=== PATIENT | female | born 1980 | race American Indian/Alaskan Native ===

== ENCOUNTER 2017-03-08 23:15 | Emergency (ER) | payer SELFPAY ==
--- NOTE | 2017-03-09 05:12 | XRay Report ---
FINAL REPORT EXAM: XR FOOT 3+V LT HISTORY: foot pain COMPARISONS: None. FINDINGS: Three nonweightbearing views left foot Mild forefoot soft tissue swelling. No bone lesion, periosteal reaction, or fracture. No deformity or gross malalignment. Small Achilles insertional enthesophyte is noted. IMPRESSION: Mild nonspecific forefoot soft tissue swelling without acute osseous finding.
[2017-03-09] MEDS ORDERED: MOTRIN PO ONE (05:21)
--- NOTE | 2017-03-09 05:26 | Emergency Department Report ---
ED Lower Extremity HPI - General Chief Complaint: Extremity Injury, Lower Stated Complaint: FOOT PAIN Time Seen by Provider: 03/09/17 04:17 Source: patient Mode of arrival: Ambulatory Limitations: No Limitations - History of Present Illness Initial Comments: This is a 36-year-old female nontoxic, well nourished in appearance, no acute signs of distress presents to the ED with c/o of left foot pain 1 week. Patient denies any trauma to the region. 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 She denies any numbness, tingling, joint swelling, joint redness, fever, chills, chest pain or shortness of breath. Patient allergies to latex and IV amaro. Past medical history includes diabetes. MD Complaint: foot injury -: week(s) (1) Injury: Foot: Left Place: work Severity: mild Severity scale (0 -10): 8 Improves With: nothing Worsens With: nothing Associated Symptoms: ambulatory. denies: snap/pop sensation, swelling, numbness , tingling, unable to bear weight, able to partially bear weight - Related Data Previous Rx's Medication Instructions Recorded Last Taken Type HYDROcodone/APAP 5-325 [Hulen 1 each PO Q6HR PRN #20 tablet 12/31/13 Unknown Rx 5/325] Ibuprofen [Motrin] 600 mg PO Q8H PRN #40 tablet 12/31/13 Unknown Rx Naproxen [Naprosyn TAB] 500 mg PO BID PRN #30 tablet 03/09/17 Unknown Rx Allergies Allergy/AdvReac Type Severity Reaction Status Date / Time latex Allergy Rash Verified 12/31/13 00:54 pramoxine HCl [From Janae Wash] Allergy Swelling Verified 12/31/13 00:54 ED Review of Systems ROS: Stated complaint: FOOT PAIN Other details as noted in HPI Constitutional: denies: chills, fever Eyes: denies: eye pain, eye discharge, vision change ENT: denies: ear pain, throat pain Respiratory: denies: cough, shortness of breath, wheezing Cardiovascular: denies: chest pain, palpitations Endocrine: no symptoms reported Gastrointestinal: denies: abdominal pain, nausea, diarrhea Genitourinary: denies: urgency, dysuria, discharge Musculoskeletal: denies: back pain, joint swelling, arthralgia Skin: denies: rash, lesions Neurological: denies: headache, weakness, paresthesias Psychiatric: denies: anxiety, depression Hematological/Lymphatic: denies: easy bleeding, easy bruising ED Past Medical Hx - Past Medical History Previous Medical History?: Yes Hx Diabetes: Yes (no meds) Additional medical history: sleep apnea - Surgical History Past Surgical History?: Yes Hx Cholecystectomy: Yes Additional Surgical History: 3 c section - Social History Smoking Status: Former Smoker Substance Use Type: None - Medications Home Medications: Home Medications Medication Instructions Recorded Confirmed Last Taken Type HYDROcodone/APAP 5-325 [Hulen 1 each PO Q6HR PRN #20 tablet 12/31/13 Unknown Rx 5/325] Ibuprofen [Motrin] 600 mg PO Q8H PRN #40 tablet 12/31/13 Unknown Rx Naproxen [Naprosyn TAB] 500 mg PO BID PRN #30 tablet 03/09/17 Unknown Rx ED Physical Exam - General Limitations: No Limitations General appearance: alert, in no apparent distress - Head Head exam: Present: atraumatic, normocephalic - Eye Eye exam: Present: normal appearance - ENT ENT exam: Present: mucous membranes moist - Neck Neck exam: Present: normal inspection - Respiratory Respiratory exam: Present: normal lung sounds bilaterally. Absent: respiratory distress - Cardiovascular Cardiovascular Exam: Present: regular rate, normal rhythm. Absent: systolic murmur, diastolic murmur, rubs, gallop - GI/Abdominal GI/Abdominal exam: Present: soft, normal bowel sounds - Extremities Exam Extremities exam: Present: normal inspection - Expanded Lower Extremity Exam Left Hip exam: Present: normal inspection, full ROM Upper Leg exam: Present: normal inspection, full ROM Knee exam: Present: normal inspection, full ROM Lower Leg exam: Present: normal inspection, full ROM Ankle exam: Present: normal inspection, full ROM. Absent: tenderness, swelling , abrasion, laceration, ecchymosis, deformity, crepidus, dislocation, erythema, anterior draw sign Foot/Toe exam: Present: normal inspection, full ROM, tenderness (plantar surface region). Absent: swelling, abrasion, laceration, ecchymosis, deformity , crepidus, dislocation, erythema, amputation, puncture wound, foreign body, calcaneal tenderness, tenderness at base of 5th metatarsal, nail avulsion, subungual hematoma Neuro vascular tendon exam: Present: no vascular compromise. Absent: abnormal cap refill, motor deficit, sensory deficit, tendon deficit, extremity cold to touch, pallor, abnormal 2-point discrimination, decreased fine/light touch, foot drop, peroneal nerve deficit, significant pain with passive ROM of distal joint Gait: Positive: observed and normal 1 - Pain - Back Exam Back exam: Present: normal inspection - Neurological Exam Neurological exam: Present: alert, oriented X3 - Psychiatric Psychiatric exam: Present: normal affect, normal mood - Skin Skin exam: Present: warm, dry, intact, normal color. Absent: rash ED Course Vital Signs 03/09/17 00:30 Temperature 98.5 F Pulse Rate 87 Respiratory 18 Rate Blood Pressure 146/84 O2 Sat by Pulse 99 Oximetry - Reevaluation(s) Reevaluation #1: 03/09/17 05:24 Patient is speaking in full sentences with no signs of distress noted. ED Lower Extremity MDM - Medical Decision Making this is a 36-year-old female that presents with plantar fasciitis of the left foot. Patient is stable and was examined by me. She received Motrin 800 mg by mouth in the ED. X-ray has been obtained and reviewed by radiologist normal examination. Patient notified of x-ray results. No further questions nor by the patient. Patient was instructed to rest and ice extremity. Patient is also instructed to exercising the extremity and buying [id number] plantar fasciitis exercise ball. Patient was referred to orthopedic doctor to follow- up in 3-5 days. At time time of discharge, the patient does not seem toxic or ill in appearance. No acute signs of distress noted. Patient agrees to discharge treatment plan of care. No further questions noted by the patient. Critical care attestation.: If time is entered above; I have spent that time in minutes in the direct care of this critically ill patient, excluding procedure time. ED Disposition Clinical Impression: Plantar fasciitis Disposition: DC-01 TO HOME OR SELFCARE Is pt being admited?: No Does the pt Need Aspirin: No Condition: Stable Instructions: Plantar Fasciitis (ED), Ibuprofen (By mouth), RICE Therapy (ED) Additional Instructions: Follow-up with a orthoepdic doctor in 3-5 days or if symptoms worsen and continue return to emergency room as soon as possible. Prescriptions: Naproxen [Naprosyn TAB] 500 mg PO BID PRN #30 tablet PRN Reason: pain Referrals: PRIMARY CARE, [Primary Care Provider] - 3-5 Days DONOVAN ROQUE MD [Staff Physician] - 3-5 Days [facility] [Outside] - 3-5 Days Forms: Work/School Release Form(ED)
[2017-03-09 06:50] VITALS: BP 139/85
== END 2017-03-09 06:50 | disposition home or self-care (01) ==
LOC: ED 03-09 01:53
DX: M72.2 Plantar fascial fibromatosis (principal); E11.9 Type 2 diabetes mellitus without complications; Z87.891 Personal history of nicotine dependence; Z88.8 Allergy status to other drugs, medicaments and biological substances; Z91.040 Latex allergy status
CPT/HCPCS: 82962; 99284